=== PATIENT | male | born 1975 | race Two or more races ===

== ENCOUNTER 2017-02-28 18:54 | Emergency (ER) | payer MEDICAID ==
[~2017-02-28] VITALS: Ht 182.9 cm; Wt 81.6 kg
[2017-02-28 19:00] VITALS: BP 131/106
[2017-02-28] MEDS ORDERED: IBUPROFEN 600 MG TAB PO ONE (19:30)
== END 2017-02-28 21:40 | disposition home or self-care (01) ==
LOC: ER 18:54
DX: S61.210A Laceration without foreign body of right index finger without damage to nail, initial encounter (principal); W23.0XXA Caught, crushed, jammed, or pinched between moving objects, initial encounter; Y93.89 Activity, other specified; Y92.89 Other specified places as the place of occurrence of the external cause; Y99.8 Other external cause status
CPT/HCPCS: 12001; 29130; 73140